=== PATIENT | male | born 1960 | race Caucasian/White ===

== ENCOUNTER → 2016-11-07 | Day surgery (SDC) | payer OTHER ==
[~2016-11-07] VITALS: Ht 167.6 cm; Wt 99.5 kg
[~2016-11-07] MED LIST: *morphine SULFATE 8 MG/ML PERIprocedure ONLY ONE; AMLO10 PO; BACITRACIN TOP OINT 15 GM TUBE ONE; CHLORHEXIDINE GLUCONATE 2 % 1 PACK (2 CLOTHS) TOPICAL PRN; FAMOTIDINE 20 MG/2 ML VIAL ONE; HYDR25TA5 PO; HYDROmorphone HCL PF 1 MG/ML VIAL IV PRN; INSULIN HUMAN REGULAR 1,000 UNITS/10 ML VIAL SQ PRN; KETOROLAC TROMETHAMINE 60 MG/2 ML (IM) VIAL IM ONE; LACTATED RINGER'S 1000 ML INJ 1,000 ML IV ONE; LACTATED RINGER'S 1000 ML INJ 500 ML IV SCH; LACTATED RINGER'S 1000 ML IV PRN; LIDOCAINE HCL 1% 50 ML VIAL ONE; LIDOCAINE HCL 2% 50 ML VIAL ONE; METOPROLOL TARTRATE 25 MG TAB PO PRN; MIDAZOLAM HCL 2 MG/2 ML VIAL ONE; NEOMYCIN/POLYMYXIN 1 ML G.U. IRRIGANT IR ONE; NEOSTIGMINE 3 MG/3 ML SYR IV ONE; OMEP20TA PO; ONDANSETRON HCL 4 MG/2 ML VIAL IV PUSH ONE; ONDANSETRON HCL 4 MG/2 ML VIAL IV PUSH PRN; PARO20TA2 PO; POVIDONE IODINE 5% (ANTISEPSIS KIT) 4 APPLICATIONS EACH NARE PRN; PROPOFOL 200 MG/20 ML AMP IV ONE; SIMV10TA PO; SODIUM CHLORID 0.9% 500 ML IV PRN; VITA10003 PO; ceFAZolin 2 GM PREMIX 50 ML IV SCH; ceFAZolin 2 GM PREMIX 50 ML ONE; fentaNYL CITRATE 250 MCG/5 ML AMP ONE
[2016-11-07 07:43] VITALS: BP 121/82; PULSE 77; RESP 16; TEMP 98.5; O2SAT 97
[2016-11-07 07:56] LABS: AUTOMATED NEUTROPHIL # 5.6 TH/MM3 (1.8-7.7); BASOPHIL % 0.6 % (0.0-2.0); EOSINOPHIL # 0.2 TH/MM3 (0-0.4); HEMATOCRIT 37.7 % (39.0-51.0); HEMO FLAGS DIFF FINAL; LYMPH % 19.2 % (9.0-44.0); LYMPHOCYTE # 1.6 TH/MM3 (1.0-4.8); MEAN CELL VOLUME 85.3 FL (80.0-100.0); MEAN CORPUSCULAR HEMOGLOBIN 29.9 PG (27.0-34.0); MEAN CORPUSCULAR HGB CONC 35.1 % (32.0-36.0); MONO % 9.5 % (0.0-8.0); NEUT % 67.7 % (16.0-70.0); PLATELET COUNT 330 TH/MM3 (150-450); RED BLOOD COUNT 4.42 MIL/MM3 (4.50-5.90); WHITE BLOOD COUNT 8.2 TH/MM3 (4.0-11.0)
--- NOTE | 2016-11-07 08:12 | EKG ---
Date Performed: 11/07/2016 Time Performed: 07:31:25 PTAGE: 56 years EKG: Sinus rhythm NORMAL ECG NO PREVIOUS TRACING DOCTOR: Yoni Villar Interpretating Date/Time 11/07/2016 08:10:33
--- NOTE | 2016-11-07 16:54 | RADRPT ---
EXAM DATE/TIME: 11/07/2016 09:47 [place] COMPARISON: No previous studies available for comparison. INDICATIONS : Reduction with screw bad plate placement right wrist., MEDICAL HISTORY : None. SURGICAL HISTORY : None. ENCOUNTER: Initial ACUITY: 1 day PAIN SCORE: Non-responsive. LOCATION: Right wrist. FINDINGS: Plate with screws is seen bridging the impacted fracture of the distal radius. Alignment is reasonabl y anatomic. CONCLUSION: Plate and screws bridging distal fracture involving the radiocarpal joint. Jimmy Cuello MD FACR on November 07, 2016 at 16:45 Board Certified Radiologist. This report was verified electronically.
[2016-11-07 17:30] VITALS: BP 133/83; O2SAT 93
[2016-11-07 18:00] VITALS: PULSE 96; RESP 20; TEMP 99.2
--- NOTE | 2016-11-09 20:23 | MP ---
cc: ASHLEY CASTAÑEDA DATE OF SURGERY: 11/07/2016. PREOPERATIVE DIAGNOSIS: Closed significantly displaced greater than three-part intra-articular right distal radius fracture. POSTOPERATIVE DIAGNOSIS: Closed significantly displaced greater than three-part intra-articular right distal radius fracture. OPERATIVE PROCEDURE PERFORMED: Open reduction internal fixation right distal radius fracture, intra-articular greater than three-part fracture. SURGEON: Dr. Ashley Castañeda ANESTHESIA: General and local. TOURNIQUET TIME: Two hours at 250 mmHg. The tourniquet was released and then reinflated for an additional twenty-nine minutes. IMPLANTS: Synthes volar rim distal radius plate. INDICATIONS FOR THE PROCEDURE: Tavo Wright is a pleasant 56-year-old right hand-dominant male who fell off a ladder on 10/27/2016 falling approximately 7 feet onto his right hand. The day of the injury he was seen at an outside hospital, placed into a splint and referred for followup. He initially saw an outside orthopedic surgeon who stated that the fracture was very complex and referred him to our practice for evaluation. I saw him initially on 11/03/2016 and at that time he was noted to have significant swelling so the surgery was scheduled for today to allow time for decreased swelling of the forearm. Treatment options were discussed with the patient as well as the x-ray was viewed with the patient, and he elected to proceed with surgical intervention. Risks were explained to not limited to wound complications, infection, need for multiple surgeries, inability to close the skin and need for a VAC, paresthesias, neurovascular injury, pain, stiffness, decreased range of motion, PE, DVT, need for additional surgeries including removal of hardware, significant arthritis in the wrist, need for additional surgeries including wrist fusion, need for temporary fusion of the wrist including a dorsal spanning plate and he elected to proceed. DESCRIPTION OF PROCEDURE IN DETAIL: The patient was identified in the preoperative holding and the correct extremity was marked. The patient was taken back to the operating room where anesthesia was induced. The right upper extremity was prepped and draped in a normal sterile fashion. Under fluoroscopy, traction was placed onto the wrist and again as similar to preoperatively, there was noted to be a significantly dorsally displaced intra-articular distal radius fracture with significant comminution and greater than a three-part fracture. The tourniquet was inflated to 250 mmHg for two hours. A standard volar approach was made with care taken to protect the radial artery, median nerve and flexor tendons. The FCR sheath was incised as well as the pronator quadratus. The fracture was identified and again there was significant comminution, displacement and bone loss. Reduction was performed under fluoroscopy using a combination of traction and K-wires. The dorsal cortex was significantly thin as well as the radial styloid was a very thin piece of bone. The decision was made to use a volar rim plate due to the significantly distal nature of the fracture but I also considered using a dorsal spanning plate. Some DBX bone putty was placed into the fracture site and then the volar rim plate was placed with improvement of the radial inclination as well as the lateral alignment of the wrist was back to neutral compared to the significant dorsal displacement prior. A combination of nonlocking and locking screws were placed. A clamp was used to reduce the radial styloid fracture and small arthrotomy was made in the wrist to assess the articular surface. I did adjust the styloid piece once but I was concerned to place an additional plate due to the very thin nature of the bone and drilling multiple holes. The tourniquet was released after two hours. The wrist was stressed with flexion and extension and was found to be stable so I decided not to place a dorsal spanning plate with concern for swelling of the forearm. The tourniquet was released. Hemostasis was obtained. The wound was closed with Monocryl and nylon. The tourniquet was reinflated for closure to assist with swelling and then deflated again after an additional twenty-nine minutes. The patient was placed in a well-padded [facility] splint and will be seen in close followup and likely be in a [place] splint. 20 mL of 2% lidocaine with no epinephrine was used for local anesthesia over the wrist. The patient was awoken from anesthesia without any complications. He was seen in the recovery room and had good range of motion of his fingers. He had sensation intact in the ulnar and radial nerve distribution, numbness in the median nerve distribution. He and his were educated to elevate the hand overnight as he did the past several days as he had significant swelling in his forearm today compared to his initial evaluation. He was educated to call my partner over the weekend immediately with any concerns in regards to swelling or pain. Otherwise, I will see him again with our therapist for a [place] splint and a close followup and he understands again he is at risk for significant arthritis of the wrist, need for hardware removal, need for additional surgeries, nonunion, malunion, stiffness and pain. MD YAAKOV Wilson/CHRISTIN /12:09 AM /8:01 PM [place]
== END | disposition home or self-care (01) ==
LOC: HSDC 06:56
PROVIDERS: ATTEND Orthopaedic Surgery
DX: S52.571A Other intraarticular fracture of lower end of right radius, initial encounter for closed fracture (principal); I10 Essential (primary) hypertension; W17.89XA Other fall from one level to another, initial encounter; W11.XXXA Fall on and from ladder, initial encounter; R06.9 Unspecified abnormalities of breathing
CPT/HCPCS: 01830; 25609; 73100; 76000; 85025; 93005; 94150; C1713; J0690; J1885; J2250; J2270; J2405; J2710; J3010; J7120

== ENCOUNTER 2016-11-08 01:32 | Emergency (ER) | payer OTHER ==
[~2016-11-08] VITALS: Ht 167.6 cm; Wt 100.0 kg
[~2016-11-08 01:32] MED LIST changes: -*morphine SULFATE 8 MG/ML PERIprocedure ONLY ONE; -BACITRACIN TOP OINT 15 GM TUBE ONE; -CHLORHEXIDINE GLUCONATE 2 % 1 PACK (2 CLOTHS) TOPICAL PRN; -FAMOTIDINE 20 MG/2 ML VIAL ONE; -HYDROmorphone HCL PF 1 MG/ML VIAL IV PRN; -INSULIN HUMAN REGULAR 1,000 UNITS/10 ML VIAL SQ PRN; -KETOROLAC TROMETHAMINE 60 MG/2 ML (IM) VIAL IM ONE; -LACTATED RINGER'S 1000 ML INJ 1,000 ML IV ONE; -LACTATED RINGER'S 1000 ML INJ 500 ML IV SCH; -LACTATED RINGER'S 1000 ML IV PRN; -LIDOCAINE HCL 1% 50 ML VIAL ONE; -LIDOCAINE HCL 2% 50 ML VIAL ONE; -METOPROLOL TARTRATE 25 MG TAB PO PRN; -MIDAZOLAM HCL 2 MG/2 ML VIAL ONE; -NEOMYCIN/POLYMYXIN 1 ML G.U. IRRIGANT IR ONE; -NEOSTIGMINE 3 MG/3 ML SYR IV ONE; -ONDANSETRON HCL 4 MG/2 ML VIAL IV PUSH ONE; -ONDANSETRON HCL 4 MG/2 ML VIAL IV PUSH PRN; -POVIDONE IODINE 5% (ANTISEPSIS KIT) 4 APPLICATIONS EACH NARE PRN; -PROPOFOL 200 MG/20 ML AMP IV ONE; -SODIUM CHLORID 0.9% 500 ML IV PRN; -ceFAZolin 2 GM PREMIX 50 ML IV SCH; -ceFAZolin 2 GM PREMIX 50 ML ONE; -fentaNYL CITRATE 250 MCG/5 ML AMP ONE
[2016-11-08 01:35] VITALS: BP 143/88; PULSE 97; RESP 14; TEMP 97.8; O2SAT 97
--- NOTE | 2016-11-08 03:04 | PD ---
HPI Chief Complaint: Wound/Suture/Staple Re-Check Time Seen by Provider: 02:21 Travel History International Travel<30 days: No Contact w/Intl Traveler<30days: No Traveled to known affect area: No History of Present Illness HPI 56-year-old male complains of numbness and tingling sensation on the right hand fingers and increasing pain and swelling of right forearm. Patient status post ORIF for fracture right distal radius yesterday. Patient was discharged home. Patient states that he has increasing numbness of tingling sensation burning sensation with swelling of the right forearm and right hand fingers since then. Patient denies any other problem. Patient denies any injury since discharge. PFSH Past Medical History Cancer: No Cardiovascular Problems: No Diabetes: No Endocrine: No Gastrointestinal Disorders: Yes (GERD, HAS MANY COLON POLYPS) Genitourinary: No Hepatitis: Yes ( CHILD) Hiatal Hernia: No Hypertension: Yes Immune Disorder: No Musculoskeletal: Yes (RIGHT HIP PAIN FROM FALL) Neurologic: No Psychiatric: No Respiratory: No Thyroid Disease: No Past Surgical History AICD: No Body Medical Devices: NONE Joint Replacement: No Pacemaker: No Social History Alcohol Use: Yes (1 DRINK A NIGHT) Tobacco Use: No Substance Use: No Allergies-Medications (Allergen,Severity, Reaction): Coded Allergies: No Known Allergies (Unverified , 11/08/16) Reported Meds & Prescriptions Reported Meds & Active Scripts Active Reported Paroxetine (Paroxetine HCl) 20 Mg Tab 10 Mg PO DAILY Vitamin D-3 (Cholecalciferol) 1,000 Unit Tab 1,000 Units PO DAILY Hydrochlorothiazide 25 Mg Tab 25 Mg PO DAILY Omeprazole 20 Mg Tab 20 Mg PO DAILY PRN Simvastatin 10 Mg Tab 10 Mg PO DAILY Norvasc (Amlodipine Besylate) 10 Mg Tab 10 Mg PO DAILY Review of Systems General / Constitutional: No: Fever Eyes: No: Visual changes HENT: No: Headaches Cardiovascular: No: Chest Pain or Discomfort Respiratory: No: Shortness of Breath Gastrointestinal: No: Abdominal Pain Genitourinary: No: Dysuria Musculoskeletal: Positive: Pain Skin: No Rash Neurologic: Positive: Paresthesia, No: Weakness Psychiatric: No: Depression Endocrine: No: Polydipsia Hematologic/Lymphatic: No: Easy Bruising Physical Exam Narrative GENERAL: Well-nourished, well-developed patient. SKIN: Focused skin assessment warm/dry. HEAD: Normocephalic. EYES: No scleral icterus. No injection or drainage. NECK: Supple, trachea midline. No JVD or lymphadenopathy. CARDIOVASCULAR: Regular rate and rhythm without murmurs, gallops, or rubs. RESPIRATORY: Breath sounds equal bilaterally. No accessory muscle use. GASTROINTESTINAL: Abdomen soft, non-tender, nondistended. MUSCULOSKELETAL: No cyanosis, or edema. BACK: Nontender without obvious deformity. No CVA tenderness. Right forearm with sugar tong in place. Patient can move all the fingers. Decrease in range of motion of the right thumb. Sensory function intact. Data Data Last Documented VS Vital Signs Date Time Temp Pulse Resp B/P Pulse Ox O2 Delivery O2 Flow Rate FiO2 11/08/16 01:35 97.8 97 14 143/88 97 Room Air MDM Medical Decision Making Medical Screen Exam Complete: Yes Emergency Medical Condition: Yes Medical Record Reviewed: Yes Differential Diagnosis Compartment syndrome, neuropathy, neuralgia. Narrative Course 56-year-old male with increased since pain swelling right forearm and numbness tingling sensation burning sensation of the fingers. Status post ORIF for fracture right distal radius today with sugar tong splint in place of the right arm. Harjinder wrap was removed and rewrap. Patient feeling much better. Patient was advised to follow-up with his physician. Diagnosis Primary Impression: Aftercare for cast or splint check or change Patient Instructions: General Instructions Additional Instructions: Keep right arm above the heart. Continue with medications as directed. Follow- up with personal physician. Return if worse. Med/Other Pt SpecificInfo: No Change to Meds Disposition: 01 DISCHARGE HOME Condition: Stable Zackary Ernandez MD November 08, 2016 03:04
== END 2016-11-08 03:22 | disposition home or self-care (01) ==
LOC: NEPC 01:32
DX: S52.501D Unspecified fracture of the lower end of right radius, subsequent encounter for closed fracture with routine healing (principal); Z46.89 Encounter for fitting and adjustment of other specified devices; I10 Essential (primary) hypertension
CPT/HCPCS: 99283